=== PATIENT | male | born 1965 | race Two or more races ===

== ENCOUNTER 2018-02-03 10:08 | Emergency (ER) | payer OTHER ==
[~2018-02-03] VITALS: Ht 170.2 cm; Wt 89.5 kg
[2018-02-03] MEDS ORDERED: DIPH,PERTUSS(ACELL),TET VAC/PF 0.5 ML IM-VACC ONE ×2 (10:30→11:09)
[2018-02-03] MEDS ORDERED: CEFAZOLIN PMX 1GM/50ML 50 ML IV ONE (10:30)
[2018-02-03] MEDS ORDERED: ONDANSETRON 2MG/ML, 2ML ONE (10:50)
[2018-02-03] MEDS ORDERED: MORPHINE SULFATE 4 MG/ML, 1ML ONE ×3 (10:50→12:12)
[2018-02-03] MEDS: MORPHINE SULFATE 4 MG/ML, 1ML IV PRN ×3 (10:54→12:15)
[2018-02-03] MEDS ORDERED: CEFAZOLIN PMX 1GM/50ML 50 ML ONE (11:09)
[2018-02-03] MEDS ORDERED: ONDANSETRON 2MG/ML, 2ML IVPush ONE (11:30)
[2018-02-03] MEDS ORDERED: SIMV40TA3 PO (11:52)
[2018-02-03 12:31] VITALS: BP 122/67
== END 2018-02-03 13:28 | disposition home or self-care (01) ==
LOC: ED 13:22
DX: S61.211A Laceration without foreign body of left index finger without damage to nail, initial encounter (principal); W29.8XXA Contact with other powered hand tools and household machinery, initial encounter; Y93.89 Activity, other specified; Y92.69 Other specified industrial and construction area as the place of occurrence of the external cause; Y99.0 Civilian activity done for income or pay
CPT/HCPCS: 73130; 90471; 90715; 96365; 96375; 99283; J0690; J2405